=== PATIENT | female | born 1995 | race Hispanic/Latino ===

== ENCOUNTER 2020-07-29 12:48 | Inpatient (IN) | payer OTHER, SELFPAY ==
[2020-07-29] VITALS (100 sets, daily range): BP systolic 72–135; BP diastolic 52–99; PULSE 18–239; RESP 18–20; TEMP 36.4–36.9; O2SAT 97–100; BMI 28.7
--- NOTE | 2020-07-29 16:04 | LDADM ---
This patient, Lucero Caba, was admitted to Labor/Delivery/Recovery 106 on 07/29/20 at 12:48. Plans for labor, pain management and were discussed with patient. Patient/family oriented to hospital policies and general routines including ID bracelet, bed and alarms, visiting hours, pain management, procedures, bathroom and other care routines, personal items, smoking policy, room service/diet and guest tray routines, security routines, and visiting hours. Patient/Family are encouraged to report perceived risks to care and to ask questions if they do not understand what they are told or what they should do. See OBIX for further documentation.
[2020-07-29 16:07] LABS: Basophils Percent Auto 0.4 % (0.2-1.2); Eosinophils Absolute Auto 0.1 K/mm3 (0-0.3); Eosinophils Percent Auto 0.9 % (0-4.4); Hematocrit 35.6 % (37.0-47.0); Hemoglobin 11.3 g/dL (12.0-15.0); Immature Granulocyte Absolute 0.02 K/mm3 (0.00-0.031); Immature Granulocyte Percent A 0.2 % (0-0.5); Lymphocytes Absolute Auto 1.68 K/mm3 (0.9-3.2); Lymphocytes Percent Auto 15.8 % (18.3-44.2); Mean Corpuscular HGB Conc 31.7 g/dl (32-36); Mean Corpuscular Hemoglobin 27.8 pg (26-34); Mean Corpuscular Volume 87.7 fl (80-100); Mean Platelet Volume 12.1 fl (7.4-10.4); Monocytes Absolute Auto 0.5 K/mm3 (0.1-0.6); Neutrophils Absolute Auto 8.3 K/mm3 (1.3-6.7); Neutrophils Percent Auto 77.7 % (45.5-73.1); Platelet Count Result 186 k/mm3 (150-375); Red Blood Count 4.06 M/mm3 (4.2-5.4); Red Cell Distribution Width 15.8 % (11.5-14.5); White Blood Count 10.6 K/mm3 (4.5-10.0)
--- NOTE | 2020-07-29 16:16 | WPDOBADMIT ---
Obstetrics - Admit Note Admission Note: 25 y/o here with contractions and leaking fluid. Rom plus is positive. Forebag is noted and ruptured. Cervical change noted. /-2. record reviewed. No pertinent additions to the history and/or any subsequent changes in the physical findings that are not consistent with the expected course of the were found. Additions to the history and/or subsequent changes in the physical findings follow. None.
--- NOTE | 2020-07-29 16:31 | PC.NURSE ---
1248-Pt came in to be monitored for contractions.
[2020-07-29] MEDS: LACTATED RINGERS 1,000 ML 125 ML IV CONT ×2 (17:45→19:15)
[2020-07-29] MEDS: OXYTOCIN 30 UNITS/NS 500 ML 30 UNITS/500 ML BAG IV CONT (17:46)
--- NOTE | 2020-07-29 18:59 | WPDANESEPP ---
Anes - Eval Pre Procedure Procedure: Labor epidural Date/Time: 07/29/20 18:59 Surgeon: Radha Preop Diagnosis: Abd pain with contractions Pre Op Diagnosis: ROM Patient Data Age: 25 Gender: F Height: 5 ft 3 in Weight: 73.63 kg Last Vital Signs Temp 98.1 F 07/29/20 17:45 Pulse 83 07/29/20 18:46 BP 109/67 07/29/20 18:46 Allergies Allergy/AdvReac Type Severity Reaction Status Date / Time No Known Allergies Allergy Verified 07/04/20 14:01 Home Medications Medication Instructions Recorded Confirmed Type PNV cmb#95-ferrous fumarate-FA 1 tablet PO DAILY 07/04/20 07/04/20 History [] Laboratory Tests 07/29/20 07/29/20 07/29/20 15:59 15:59 15:59 WBC 10.6 K/mm3 H K/mm3 (4.5-10.0) RBC 4.06 M/mm3 L M/mm3 (4.2-5.4) Hgb 11.3 g/dL L g/dL (12.0-15.0) Hct 35.6 % L % (37.0-47.0) MCV 87.7 fl fl (80-100) MCH 27.8 pg pg (26-34) MCHC 31.7 g/dl L g/dl (32-36) RDW 15.8 % H % (11.5-14.5) Plt Count 186 k/mm3 k/mm3 (150-375) MPV 12.1 fl H fl (7.4-10.4) Immature Gran % (Auto) 0.2 % % (0-0.5) Neut % (Auto) 77.7 % H % (45.5-73.1) Lymph % (Auto) 15.8 % L % (18.3-44.2) [place] % (Auto) 5.0 % % (2.6-8.5) Eos % (Auto) 0.9 % % (0-4.4) Baso % (Auto) 0.4 % % (0.2-1.2) Lymph # (Auto) 1.68 K/mm3 K/mm3 (0.9-3.2) [place] # (Auto) 0.5 K/mm3 K/mm3 (0.1-0.6) Eos # (Auto) 0.1 K/mm3 K/mm3 (0-0.3) Baso # (Auto) 0.0 K/mm3 K/mm3 (0.0-0.1) Abs Immat Gran (auto) 0.02 K/mm3 K/mm3 (0.00-0.031) Absolute Neuts (auto) 8.3 K/mm3 H K/mm3 (1.3-6.7) Absolute Nucleated RBC 0.0 K/mm3 K/mm3 (0.0-0.012) Nucleated RBC % 0.0 % % (0.0-0.2) RPR Pending Blood Type A Positive Antibody Screen Negative Patient hx anesthesia problems: none Family hx anesthesia problems: none PMFSH Past Medical History Medical History (Updated 07/29/20 @ 19:00 by Nikunj Liu CRNA) Overweight (BMI 25.0-29.9) and not yet delivered Family History Family History (Updated 07/04/20 @ 14:07 by Dee Dee Lyles RN) Sibling Neil syndrome Mother Diabetes mellitus Social History Social History Smoking status: Former smoker Second hand tobacco smoke exposure: No Substance use: never Gender identity (if verbalized by the patient): Female Spiritual care concerns: No Exam Day of Procedure 07/29/20 18:59 Patient weight: overweight Airway: Mallampati scale Neurological: alert and oriented
[2020-07-30] VITALS (39 sets, daily range): BP systolic 98–132; BP diastolic 58–94; PULSE 32–151; RESP 16–20; TEMP 36.6–37.1; O2SAT 86–100
--- NOTE | 2020-07-30 01:43 | PM.OBPRVD ---
OB - Delivery Note Procedure Delivery date: 07/30/20 Intrapartal events: None Induction method: none Delivery monitor: external FHT, external uterine and internal FHT Route of delivery: Episiotomy description: None Laceration Description: Labial (Right labial superficial laceration. 4-0 vicryl.) Delivery repair: vicryl Quantitative Blood Loss (ml): 124 Anesthesia type: Epidural Narrative: Cord gasses collected and handed off to staff. Mother and baby in stable condition. [place] Baby Date of : 07/30/20 Time of : 01:25 Weeks of gestation at delivery: 39 Infant gender: Male presentation: vertex position: Right Occiput Anterior Placenta delivery description: Spontaneous cord vessel description: 3 Vessels and Delayed Cord Clamping score one minute: 9 score five minutes: 9
[2020-07-30] MEDS: OXYTOCIN 30 UNITS/NS 500 ML 30 UNITS/500 ML BAG 125 UNITS IV CONT (02:06)
[2020-07-30] MEDS: BENZOCAINE 20% AER SPR (*SP) 56 GM CAN 1 SPRAY TOPICAL ×2 (03:46→16:43)
[2020-07-30] MEDS: WITCH HAZEL 40 PADS 1 PAD TOPICAL ×2 (03:46→16:43)
[2020-07-30] MEDS: IBUPROFEN 600 MG TABLET PO ×4 (03:47→23:20)
--- NOTE | 2020-07-30 04:38 | OBPPTRN ---
07/30/2020 at 0409, Patient transferred to post room #282. Support person present. Oriented to unit, room, information board, rooming in, admission packet and security measures. Patient verbalizes understanding.
[2020-07-30 05:17] LABS: Amphetamine Screen Urine Negative (Negative); Barbiturate Screen Urine Negative (Negative); Benzodiazepines Screen Urine Negative (Negative); Cannabinoid Screen Urine Negative (Negative); Cocaine Screen Urine Negative (Negative); Methadone Screen Urine Negative (Negative); Opiate Screen Urine Negative (Negative); Phencyclidine Screen Urine Negative (Negative)
[2020-07-30] MEDS: DOCUSATE SODIUM 100 MG CAPSULE PO ×2 (08:20→16:43)
[2020-07-30] MEDS: MULTIVIT/MIN/PREN/FOL AC/IRON TABLET 1 TAB PO (08:20)
--- NOTE | 2020-07-30 09:30 | PC.NURSE ---
Consult with pt., mother states she wishes to bottle feed. Primary RN notified.
[2020-07-30 13:16] LABS: Rapid Plasma Reagin Non-Reactive (NonReactive)
[2020-07-30] MEDS: DIBUCAINE 1% OINTMENT 30 GM TUBE 1 APPLIC TOPICAL (16:43)
[2020-07-31 04:42] LABS: Hematocrit 29.5 % (37.0-47.0); Hemoglobin 9.1 g/dL (12.0-15.0)
--- NOTE | 2020-07-31 07:25 | PM.OBPNVD ---
OB - PN: Subj Subjective Date/time seen: 07/31/20 07:25 Patient comments: no complaints baby status: doing well OB - PN: Obj Data Labs CBC & Chem 7: 07/31/20 04:11 Labs: Laboratory Results - last 24 hr 07/29/20 07/31/20 15:59 04:11 Hgb 9.1 L Hct 29.5 L RPR Non-reactive OB - PN A/P Plan day: 2 Plan: routine care and discharge home Time Spent With Patient Time: Total time spent is greater than 50% in coordination of care (as documented) at patient's floor/unit and/or counseling patient: Review of Systems Review of Systems: All systems reviewed & are unremarkable except as noted in HPI and below Exam Const: General: cooperative Nutritional Appearance: average body habitus Orientation/consciousness: patient oriented x3
--- NOTE | 2020-07-31 07:26 | P.DS_ITS ---
DS: Admitting Diagnosis Admitting Diagnosis Admitting Diagnosis: labor OB - DS: Summary OB Procedures : None OB Procedures Intrapartum: Spontaneous Vag Delivery OB Procedures: : None Time Spent with Patient Time attestation: Total time spent providing and/or coordinating discharge services: DS: Data Data Completed and Pending Labs on day of discharge: Labs from last 24 hours 07/31/20 07/29/20 04:11 15:59 Hgb 9.1 L Hct 29.5 L RPR Non-reactive Discharge Plan Discharge Attending physician on discharge: Bee Garcia Discharging Clinician: Rosey Mueller Patient Disposition: Home, Self-Care Activity: pelvic rest Diet: regular Patient Instructions: Antibiotic Form Stand Alone Forms: General Discharge Information Follow-up/Referrals: Colette Kennedy CNM [Certified Nurse Environment Coordinator] - 4 Weeks Discharge Medications: Continued PNV cmb#95-ferrous fumarate-FA [] 28 mg iron- 800 mcg Tablet 1 tablet PO DAILY RF: 0 Date of admission: 07/29/20 12:48 Primary Care Provider: PHYSICIAN,HEAD STRENGTH AND CONDITIONING COACH Admitting Provider: Bee Garcia Attending physician on admission: Bee Garcia Condition: Stable
--- NOTE | 2020-07-31 07:58 | WPDANLDPN2 ---
Anes-Prog Note L&D Date/Time: 07/31/20 07:58 Comfortable throughout: labor and delivery Neuraxial method: epidural Epidural/Spinal procedure site: clean & non-tender Neuro status: Neuro function grossly intact. Cardiovascular status: normal Respiratory status: normal Airway patency: baseline Mental status: baseline Post-Op hydration status: normal Vital Signs: Last Vital Signs Temp 36.7 C 07/30/20 19:30 Pulse 86 07/30/20 19:30 Resp 20 07/30/20 19:30 BP 109/69 07/30/20 19:30 Pulse Ox 99 07/30/20 11:32 Pain score (VAS): 0 Post-procedural complaints: none Patient feedback: Patient satisfied with anesthetic care.
[2020-07-31 08:00] VITALS: BP 119/76; PULSE 72; RESP 18; TEMP 36.8; O2SAT 100
[2020-07-31] MEDS: BENZOCAINE 20% AER SPR (*SP) 56 GM CAN 1 SPRAY TOPICAL (08:22)
[2020-07-31] MEDS: WITCH HAZEL 40 PADS 1 PAD TOPICAL (08:22)
[2020-07-31] MEDS: IBUPROFEN 600 MG TABLET PO (08:22)
[2020-07-31] MEDS: POLYSACCHARIDE IRON COMPLEX 150 MG CAPSULE PO (08:23)
[2020-07-31] MEDS: DOCUSATE SODIUM 100 MG CAPSULE PO (08:23)
[2020-07-31] MEDS: MULTIVIT/MIN/PREN/FOL AC/IRON TABLET 1 TAB PO (08:23)
--- NOTE | 2020-07-31 11:00 | PC.NURSE ---
Self care and infant care discharge instructions given including follow up visit date and time. Mother verbalized understanding. No questions or concerns verbalized. Very pleasant and cooperative. Sister at side.
[2020-07-31] MEDS: TETANUS,DIPHTHERIA,AC PERTUSSIS ADULT (0.5 ML) BOOSTRIX IM (11:35)
[2020-08-01 10:35] VITALS: BP 120/88; PULSE 81; RESP 20; TEMP 36.8; O2SAT 100
== END 2020-07-31 11:55 | disposition home or self-care (01) | DRG 560 ==
LOC: ANHLDR 15:38 → ANHOB2 07-30 04:17
PROVIDERS: Advanced Practice Midwife; Admitting Provider Obstetrics & Gynecology; Visit Provider Obstetrics & Gynecology
DX: O76 Abnormality in fetal heart rate and rhythm complicating labor and delivery (principal); O70.0 First degree perineal laceration during delivery; Z3A.39 39 weeks gestation of pregnancy; Z37.0 Single live birth
CPT/HCPCS: 36415; 80307; 85014; 85018; 85025; 86592; 86850; 86900; 86901; 90715; A9270; J2590; J2795; J7120

== ENCOUNTER 2024-02-11 21:02 | Inpatient (IN) | payer OTHER, SELFPAY ==
[2024-02-11 23:47] VITALS: BP 125/54; PULSE 96
[2024-02-12] VITALS (147 sets, daily range): BP systolic 52–195; BP diastolic 19–129; PULSE 61–168; RESP 16–18; TEMP 36.3–37; O2SAT 80–100; BMI 31.0
[2024-02-12] MEDS: LACTATED RINGERS 1,000 ML 125 ML IV CONT ×2 (00:10→01:00)
[2024-02-12 00:11] LABS: Basophils Absolute Auto 0.1 K/mm3 (0.0-0.1); Basophils Percent Auto 0.5 % (0.2-1.2); Eosinophils Absolute Auto 0.1 K/mm3 (0-0.3); Eosinophils Percent Auto 1.2 % (0-4.4); Hematocrit 33.1 % (37.0-47.0); Hemoglobin 10.7 g/dL (12.0-15.0); Immature Granulocyte Absolute 0.04 K/mm3 (0.00-0.031); Immature Granulocyte Percent A 0.4 % (0-0.5); Lymphocytes Absolute Auto 2.83 K/mm3 (0.9-3.2); Mean Corpuscular HGB Conc 32.3 g/dl (32-36); Mean Corpuscular Hemoglobin 26.8 pg (26-34); Mean Platelet Volume 12.2 fl (7.4-10.4); Monocytes Absolute Auto 0.7 K/mm3 (0.1-0.6); Monocytes Percent Auto 6.5 % (2.6-8.5); Neutrophils Absolute Auto 6.4 K/mm3 (1.3-6.7); Neutrophils Percent Auto 63.4 % (45.5-73.1); Platelet Count Result 189 k/mm3 (150-375); Red Blood Count 3.99 M/mm3 (4.2-5.4); Red Cell Distribution Width 15.9 % (11.5-14.5); White Blood Count 10.1 K/mm3 (4.5-10.0)
[2024-02-12 00:23] LABS: Glucose 91 mg/dL (65-110)
[2024-02-12 01:19] LABS: Rapid Plasma Reagin Non-Reactive (NonReactive)
--- NOTE | 2024-02-12 02:08 | P.PNAN_ITS ---
Anes - Eval Pre Procedure Procedure: labor epidural Date/Time: 02/12/24 02:08 Surgeon: lee Preop Diagnosis: pain during labor Pre Op Diagnosis: Labor Patient Data Age: 28 Gender: F Height: 1.57 m Weight: 77 kg Last Vital Signs Pulse 76 02/12/24 02:03 BP 155/89 H 02/12/24 02:03 Pulse Ox 92 02/12/24 02:07 Allergies Allergy/AdvReac Type Severity Reaction Status Date / Time No Known Drug Allergies Allergy Mild none Verified 02/01/24 13:50 Home Medications ?Medication ?Instructions ?Recorded ?Confirmed ?Type vit no.95-ferrous 1 tablet PO DAILY 07/04/20 02/01/24 History fumarate 28 mg-folic acid 800 mcg tablet () ferrous sulfate 137 mg (45 mg 137 mg PO DAILY 02/01/24 02/01/24 History iron) tablet,extended release (Slow Fe) Laboratory Tests 02/11/24 02/11/24 23:58 23:59 WBC 10.1 H K/mm3 (4.5-10.0) RBC 3.99 L M/mm3 (4.2-5.4) Hgb 10.7 L g/dL (12.0-15.0) Hct 33.1 L % (37.0-47.0) MCV 83.0 fl (80-100) MCH 26.8 pg (26-34) MCHC 32.3 g/dl (32-36) RDW 15.9 H % (11.5-14.5) Plt Count 189 k/mm3 (150-375) MPV 12.2 H fl (7.4-10.4) Immature Gran % (Auto) 0.4 % (0-0.5) Neut % (Auto) 63.4 % (45.5-73.1) Lymph % (Auto) 28.0 % (18.3-44.2) [place] % (Auto) 6.5 % (2.6-8.5) Eos % (Auto) 1.2 % (0-4.4) Baso % (Auto) 0.5 % (0.2-1.2) Lymph # (Auto) 2.83 K/mm3 (0.9-3.2) [place] # (Auto) 0.7 H K/mm3 (0.1-0.6) Eos # (Auto) 0.1 K/mm3 (0-0.3) Baso # (Auto) 0.1 K/mm3 (0.0-0.1) Abs Immat Gran (auto) 0.04 H K/mm3 (0.00-0.031) Absolute Neuts (auto) 6.4 K/mm3 (1.3-6.7) Absolute Nucleated RBC 0.000 K/mm3 (0.0-0.012) Nucleated RBC % 0.0 % (0.0-0.2) Glucose 91 mg/dL (65-110) RPR Non-reactive (NonReactive) HIV 1&2 Ab/P24 Ag 4thGn Pending Blood Type A Positive Antibody Screen Negative Patient hx anesthesia problems: none Family hx anesthesia problems: none Results Review: All pre-operative results and documents have been reviewed as part of the pre- operative evaluation. [facility] Past Medical History Medical History Overweight (BMI 25.0-29.9) and not yet delivered Family History Family History Sibling H[place] syndrome Mother Diabetes mellitus Social History Social History Smoking status: Former smoker Second hand tobacco smoke exposure: No Substance use: never Gender identity (if verbalized by the patient): Female Spiritual care concerns: No Exam Day of Procedure 02/12/24 02:08
[2024-02-12 02:23] LABS: HIV 1/2 Ab P24 Ag Result Negative (Negative)
--- NOTE | 2024-02-12 04:09 | LDADM ---
This patient, Lucero Caba, was admitted to Labor/Delivery/Recovery 105 on 02/11/24 at 21:02. Plans for labor, pain management and were discussed with patient. Patient/family oriented to hospital policies and general routines including ID bracelet, bed and alarms, visiting hours, pain management, procedures, bathroom and other care routines, personal items, smoking policy, room service/diet and guest tray routines, security routines, and visiting hours. Patient/Family are encouraged to report perceived risks to care and to ask questions if they do not understand what they are told or what they should do. See OBIX for further documentation.
[2024-02-12] MEDS: OXYTOCIN 30 UNITS/NS 500 ML 30 UNITS/500 ML BAG IV CONT (04:15)
[2024-02-12 04:55] LABS: Glucose Point of Care 88 mg/dl (65-105)
--- NOTE | 2024-02-12 06:37 | PM.OBPRVD ---
OB - Vaginal Delivery Note Procedure Delivery date: 02/12/24 Delivery augmentation: Pitocin Delivery monitor: External FHT and External Uterine Route of delivery: Episiotomy description: None Laceration Description: None Quantitative Blood Loss (ml): 150 Anesthesia type: Epidural Disposition: Floor
[2024-02-12] MEDS: OXYTOCIN 30 UNITS/NS 500 ML 30 UNITS/500 ML BAG 125 UNITS IV CONT (07:00)
--- NOTE | 2024-02-12 10:13 | PC.NURSE ---
Patient transferred to post room #292 via wheelchair. Support person present. Oriented to unit, room, information board, rooming in, admission packet and security measures. Patient verbalizes understanding.
[2024-02-12] MEDS: IBUPROFEN 600 MG TABLET PO ×2 (10:51→18:59)
--- NOTE | 2024-02-12 16:30 | PC.NURSE ---
Introductions were made, then consulted with patient to assess needs related to . Discussed with mother her?plans to feed?her and the?experience so far. The primary RN assisted her with the last feeding and she states that she has no questions or concerns at this time. She desires to breast and bottle feed and has supplemented after . She is already connected with [facility] and has a breast pump at home. Resources provided for inpatient and outpatient services with the feeding sheet, mom/baby guide and admission packet. Mother voiced understanding of information and will call if there is a request for assistance. Reported to the Primary RN.
[2024-02-13 04:44] LABS: Hematocrit 28.4 % (37.0-47.0); Hemoglobin 8.8 g/dL (12.0-15.0)
--- NOTE | 2024-02-13 06:39 | P.PNOB_ITS ---
OB - PN: Subj Subjective Date/time seen: 02/13/24 06:39 Interval history: pp day 1 doing well would like d/c home OB - PN: Obj Data Labs 02/13/24 03:51 02/11/24 23:59 Labs: Laboratory Results - last 24 hr 02/13/24 03:51 Hgb 8.8 L Hct 28.4 L OB - PN A/P Plan day: 1 Plan: routine care and discharge home Time Spent With Patient Time: Total time spent is greater than 50% in coordination of care (as documented) at patient's floor/unit and/or counseling patient: Review of Systems 2 Review of Systems: All systems reviewed & are unremarkable except as noted in HPI and below Exam 2 Const: General: cooperative, healthy appearing and comfortable Resp: Effort & Inspection: normal respiratory effort Cardio: Rate: regular rate Back/Spine/Pelvis: Back: no CVA tenderness Skin: General skin exam: normal color Neuro: General: patient oriented x3
--- NOTE | 2024-02-13 06:42 | PM.OBDSVD ---
DS: Admitting Diagnosis Discharge Date 02/13/24 Admitting Diagnosis labor DS: Discharge Diagnosis Discharge Diagnosis (1) Vaginal delivery: Code(s): O80 - Encounter for full-term uncomplicated delivery Status: Acute OB - DS: Summary OB Procedures : None OB Procedures Intrapartum: Spontaneous Vag Delivery OB Procedures: : None Peripartum Data Laceration Description: None Episiotomy description: None Time Spent with Patient Time attestation: Total time spent providing and/or coordinating discharge services: DS: Data Data Completed and Pending Labs on day of discharge: Labs from last 24 hours 02/13/24 03:51 Hgb 8.8 L Hct 28.4 L Discharge Plan Discharge Attending physician on discharge: Aramis Garcia Discharging Clinician: Rosey Mueller Activity: pelvic rest Diet: regular Patient Language: Sudanese Follow-up/Referrals: Aramis Garcia MD [Physician] - 4 Weeks Discharge Medications: No Action PNV cmb#95-ferrous fumarate-FA [] 28 mg iron- 800 mcg Tablet 1 tablet PO DAILY Slow Fe 137 mg (45 mg iron) tablet extended release 137 mg PO DAILY Date of admission: 02/11/24 21:02 Primary Care Provider: PHYSICIAN,MEDICAL STAFF SPECIALIST Admitting Provider: Aramis Garcia Attending physician on admission: Aramis Garcia
[2024-02-13 07:15] VITALS: BP 104/49; PULSE 74; RESP 18; TEMP 36.7; O2SAT 98
[2024-02-13] MEDS: POLYSACCHARIDE IRON COMPLEX 150 MG CAPSULE PO (09:30)
[2024-02-13] MEDS: DOCUSATE SODIUM 100 MG CAPSULE PO (09:30)
[2024-02-13] MEDS: MULTIVIT/MIN/PREN/FOL AC/IRON TABLET 1 TAB PO (09:30)
--- NOTE | 2024-02-13 09:32 | PC.NURSE ---
Patient states her and FOB viewed the discharge video Mother & Baby Care, The First Two Weeks . Patient was given the opportunity and encouraged to ask questions. Patient verbalized understanding of information shared and has been given the mother/baby guide for home reference.
[2024-02-15 10:18] VITALS: BP 122/86; PULSE 71; RESP 16; TEMP 36.4; O2SAT 100
== END 2024-02-13 15:30 | disposition home or self-care (01) | DRG 560 ==
LOC: ANHLDR 02-12 06:39 → ANHOB2 02-12 10:15
PROVIDERS: Admitting Provider Obstetrics & Gynecology; Visit Provider Obstetrics & Gynecology
DX: O24.429 Gestational diabetes mellitus in childbirth, unspecified control (principal); Z3A.39 39 weeks gestation of pregnancy; Z37.0 Single live birth
CPT/HCPCS: 36415; 82947; 82948; 85014; 85018; 85025; 86592; 86703; 86850; 86900; 86901; A9270; G0432; J2590; J2795; J7120